=== PATIENT | male | born 1980 | race Caucasian/White ===

== ENCOUNTER 2017-12-29 22:06 | Emergency (ER) | payer OTHER ==
[~2017-12-29] VITALS: Ht 185.4 cm; Wt 96.6 kg
[2017-12-29] MEDS ORDERED: MOBIC15 MG PO (22:40)
[2017-12-29] MEDS ORDERED: KEPPRA500 MG PO (22:40)
[2017-12-29] MEDS ORDERED: VENTOLIN HFA18 GM INH (22:41)
[2017-12-29] MEDS ORDERED: FLOVENT HFA12 G1 INH (22:41)
[2017-12-29] MEDS ORDERED: PAIN RELIEF325 M1 PO (22:43)
[2017-12-29] MEDS ORDERED: PAXIL40 MG PO (22:43)
[2017-12-29] MEDS ORDERED: VITAMIN D1000 UNIT PO (22:44)
[2017-12-29] MEDS ORDERED: PROTONIX40 MG PO (22:45)
[2017-12-29] MEDS ORDERED: VISTARIL50 MG PO (22:46)
[2017-12-29] MEDS ORDERED: PRAZOSIN HCL2 MG PO (22:47)
[2017-12-29] MEDS ORDERED: AMITRIPTYLINE100 MG PO (22:47)
--- NOTE | 2017-12-30 17:18 | EKG ---
[facility] [address] [facility] [place] [address] Signed Normal sinus rhythm Normal ECG No previous ECGs available Confirmed by MILKA PEÑA MD ([id number]) on 12/30/2017 5:18:42 PM Electronically Signed By: MILKA PEÑA MD 12/30/17 1718 PATIENT NAME: VIC KRISHNAN Electrocardiogram DATE OF : 80 PHYSICIAN: MILKA PEÑA MD REPORT #: [id number] REPORT IS CONFIDENTIAL AND NOT TO BE RELEASED WITHOUT AUTHORIZATION
== END 2017-12-30 00:02 | disposition home or self-care (01) ==
LOC: ED 22:06
DX: R07.89 Other chest pain (principal); F41.0 Panic disorder [episodic paroxysmal anxiety]; F17.200 Nicotine dependence, unspecified, uncomplicated; K21.9 Gastro-esophageal reflux disease without esophagitis; G43.909 Migraine, unspecified, not intractable, without status migrainosus; Z79.899 Other long term (current) drug therapy
CPT/HCPCS: 71046; 80053; 83690; 84484; 85025; 93005; 93010; 99284

== ENCOUNTER 2018-01-10 21:02 | Emergency (ER) | payer OTHER ==
[~2018-01-10] VITALS: Ht 185.4 cm; Wt 96.6 kg
[~2018-01-10 21:02] MED LIST: AMITRIPTYLINE100 MG PO; FLOVENT HFA12 G1 INH; KEPPRA500 MG PO; MOBIC15 MG PO; PAIN RELIEF325 M1 PO; PAXIL40 MG PO; PRAZOSIN HCL2 MG PO; PROTONIX40 MG PO; VENTOLIN HFA18 GM INH; VISTARIL50 MG PO; VITAMIN D1000 UNIT PO
== END 2018-01-10 22:28 | disposition home or self-care (01) ==
LOC: ED 21:02
DX: G40.409 Other generalized epilepsy and epileptic syndromes, not intractable, without status epilepticus (principal); F17.200 Nicotine dependence, unspecified, uncomplicated; F32.9 Major depressive disorder, single episode, unspecified; F41.0 Panic disorder [episodic paroxysmal anxiety]; K21.9 Gastro-esophageal reflux disease without esophagitis; Z79.899 Other long term (current) drug therapy
CPT/HCPCS: 80053; 85025; 99283